=== PATIENT | female | born 1935 | race Caucasian/White ===

== ENCOUNTER 2018-04-14 12:14 | Observation (INO) ==
--- NOTE | 2018-04-14 12:59 | ED ---
HPI General Chief Complaint: Recheck/Abnormal Lab/Rx Stated Complaint: Phys Sent Time Seen by Provider: 04/14/18 12:29 Source: patient and family Mode of arrival: ambulatory Limitations: no limitations History of Present Illness MD Complaint: shortness of breath Onset (ago): week(s) (1) Context: other (h/o CHF) Severity: moderate Consistency/Duration: constant and progressively worsening Relieving factors: nothing Exacerbating factors: exertion Known history of: congestive heart failure Associated symptoms: other (LE edema) Treatment prior to arrival: oxygen and diuretics (HCTZ increased from 1/2 to 1 daily yesterday) Related Data Home oxygen amount: 3 liters Home Medications Medication Instructions Recorded Confirmed Ca-D3-mag sy-xypn-gwp-mg-bor 600 units PO DAILY 04/14/18 04/14/18 [Calcium 600-D3 Plus] albuterol sulfate 2.5 mg INHALATION QID PRN 04/14/18 04/14/18 albuterol sulfate [Ventolin HFA] 1 puff INHALATION Q6H PRN 04/14/18 04/14/18 aspirin-dipyridamole 1 cap PO BID 04/14/18 04/14/18 denosumab [Prolia] 60 mg SUBCUT [id number] 04/14/18 04/14/18 dexamethasone 1 mg PO BID 04/14/18 04/14/18 escitalopram oxalate 5 mg PO DAILY 04/14/18 04/14/18 ferrous sulfate 325 mg PO BID 04/14/18 04/14/18 fluticasone-salmeterol [Advair 1 inh INHALATION BID 04/14/18 04/14/18 Diskus] gabapentin 200 mg PO BID 04/14/18 04/14/18 gabapentin 300 mg PO HS 04/14/18 04/14/18 hydrochlorothiazide 12.5 mg PO DAILY 04/14/18 04/14/18 hydrocodone-acetaminophen 1 tab PO Q6H PRN 04/14/18 04/14/18 levothyroxine 125 mcg PO DAILY 04/14/18 04/14/18 ranitidine HCl 150 mg PO BID 04/14/18 04/14/18 Allergies Allergy/AdvReac Type Severity Reaction Status Date / Time penicillin G Allergy Severe Nausea/Vomi Verified 04/14/18 13:53 ting azithromycin Allergy Mild Itching Verified 04/14/18 13:53 codeine Allergy Mild Itching Verified 04/14/18 13:53 Review of Systems ROS: all other systems reviewed are negative Integumentary/Breasts Reports other (large bruise, L thigh d/t fall 5 days ago--tripped walking dog. ) Hematologic/Lymphatic Reports other (anemic with Hgb of 7 per PCP yesterday) ON LICENSE OF [facility] Medical History Medical History Bronchiectasis (Acute) CHF (congestive heart failure) (Acute) Hypertension (Acute) Thyroid disease (Acute) Brain tumor (Chronic) Pulmonary embolism (Resolved) TIA (transient ischemic attack) (Resolved) Social History Social History Substance History: No History of Abuse Second Hand Smoke Exposure: No Smoking Status: Never smoker How Often Do You Have a Drink Containing Alcohol: Never Recent Travel in [facility] within the Last 8 Weeks: No Recent Out of Country Travel within the Last 8 Weeks: No Exam Const General: cooperative, healthy appearing, comfortable, no acute distress, well developed and well groomed Orientation: alert, awake and oriented x3 HENMT Head: normal to inspection, normocephalic and atraumatic Eyes Alignment and Position: alignment normal Conjunctivae: conjunctivae normal Sclera: sclerae normal EOM: EOM intact bilaterally Neck Neck: normal visual inspection and full ROM Chest Chest: normal inspection of the chest Resp Effort & Inspection: normal respiratory effort, able to speak in complete sentences and other (on oxygen) Auscultation: crackles Cardio Rate: regular rate Rhythm: regular rhythm GI Inspection: normal to inspection Palpation: soft Rectal Exam: visual inspection normal and normal sphincter tone Back/Spine/Pelvis Cervical Spine: cervical ROM normal Thoracic/Lumbar Spine: thoraco-lumbar ROM normal Skin General: no rashes or lesions noted, turgor normal and ecchymosis (entire left lateral thigh) Neuro General: alert, awake, oriented x3, moves all extremities and CN's II-XI intact bilaterally Extrem General: normal to inspection and full ROM Left lower extremity: edema Details: pitting and 1+ Psych Appearance: grossly normal Mental Status: mental status grossly normal Speech and Movement: speech and movement normal Mood: congruent mood Affect: normal affect Attitude: cooperative Thought Process: normal Thought Content: normal Judgment: judgment good Procedures Hemaprompt Stool Procedural Steps Taken: specimen placed in appropriate test area and controls appropriately positive and negative Hemaprompt Stool Result: positive (trace) Course Consultations Consultation #1: Dr. Dotson asks that she be placed in OBS Time: 14:57 Initial Documented Vital Signs Temperature 98.8 F 04/14/18 12:18 Pulse Rate 79 04/14/18 12:18 Respiratory Rate 18 04/14/18 12:18 Blood Pressure 125/58 L 04/14/18 12:18 Pulse Oximetry 95 04/14/18 12:18 Last Documented Vital Signs Temperature 98.8 F 04/14/18 12:18 Pulse Rate 68 04/14/18 12:55 Respiratory Rate 20 04/14/18 12:55 Blood Pressure 123/77 04/14/18 12:55 Pulse Oximetry 98 04/14/18 12:55 Medical Decision Making MDM Narrative Medical decision making narrative: He called the patient's daughter today and instructed her to bring the patient to the hospitalThis patient is brought in by her daughter with a one-week history of worsening dyspnea as well as peripheral edema. She saw her PMD yesterday who increased her HCTZ from 12.5 mg daily to 25 mg daily. He obtained lab work and a chest x-ray in the office yesterday. Because of congestive heart failure as well as anemia. The daughter states that her hemoglobin as an outpatient was 7. The most probable etiology of her anemia is a little large left thigh hematoma which she sustained approximately 5 days ago following a trip and fall while walking her dog. Medical Screen Exam Complete: Yes Emergency Medical Condition: Yes Differential Diagnosis Differential Diagnosis: Differential diagnosis of dyspnea includes but is not limited to congestive heart failure, pneumonia, wheezing, pneumothorax, pulmonary embolism Lab Data Lab results reviewed: Yes I reviewed the patient's lab results. Lab results narrative: I had already ordered a type and cross based upon her history. I have now ordered transfusion times 2 units. Result diagrams: 04/14/18 13:41 04/14/18 13:41 Lab Results 04/14/18 04/14/18 04/14/18 Range/Units 13:41 13:41 13:41 WBC 8.3 (4.0-11.0) th/mm3 RBC 2.47 L (4.00-5.30) mil/mm3 Hgb 6.8 L* (11.6-15.3) gm/dL Hct 21.8 L (35.0-46.0) % MCV 88.3 (80.0-100.0) fL MCH 27.6 (27.0-34.0) pg MCHC 31.2 L (32.0-36.0) % RDW 18.6 H (11.6-17.2) % Plt Count 131 L (150-450) th/mm3 MPV 10.1 (7.0-11.0) fL Prelim Diff (Auto) Manual diff required WBC Differential Manual diff final Seg Neuts % (Manual) 63 (16-70) % Band Neuts % (Manual) 2 (0-6) % Lymphocytes % (Manual) 17 (9-44) % Monocytes % (Manual) 18 H (0-8) % Abs Neuts (Manual) 5.4 (1.8-7.7) th/mm3 Differential Comment . Platelet Estimate Low L (Normal) Platelet Morphology Normal (Normal) Ovalocytes 1+ H (None) Sodium 145 (136-145) meq/L Potassium 3.7 (3.5-5.1) meq/L Chloride 108 H (98-107) meq/L Carbon Dioxide 29.5 (21.0-32.0) meq/L Anion Gap 8 (5-15) meq/L BUN 33 H (7-18) mg/dL Creatinine 1.02 H (0.50-1.00) mg/dL Estimated GFR 52 L (>89) mL/min Random Glucose 79 (74-106) mg/dL Calcium 8.1 L (8.5-10.1) mg/dL Total Bilirubin 0.3 (0.2-1.0) mg/dL AST 20 (15-37) U/L ALT 20 (10-53) U/L Alkaline Phosphatase 56 (45-117) U/L Troponin I Less than 0.02 L (0.02-0.05) ng/mL B-Natriuretic Peptide 120 H (0-100) pg/mL Total Protein 5.4 L (6.4-8.2) g/dL Albumin 2.8 L (3.4-5.0) g/dL Blood Type Blood Type Recheck Antibody Screen MTS Gel Crossmatch 04/14/18 Range/Units 13:41 WBC (4.0-11.0) th/mm3 RBC (4.00-5.30) mil/mm3 Hgb (11.6-15.3) gm/dL Hct (35.0-46.0) % MCV (80.0-100.0) fL MCH (27.0-34.0) pg MCHC (32.0-36.0) % RDW (11.6-17.2) % Plt Count (150-450) th/mm3 MPV (7.0-11.0) fL Prelim Diff (Auto) WBC Differential Seg Neuts % (Manual) (16-70) % Band Neuts % (Manual) (0-6) % Lymphocytes % (Manual) (9-44) % Monocytes % (Manual) (0-8) % Abs Neuts (Manual) (1.8-7.7) th/mm3 Differential Comment Platelet Estimate (Normal) Platelet Morphology (Normal) Ovalocytes (None) Sodium (136-145) meq/L Potassium (3.5-5.1) meq/L Chloride (98-107) meq/L Carbon Dioxide (21.0-32.0) meq/L Anion Gap (5-15) meq/L BUN (7-18) mg/dL Creatinine (0.50-1.00) mg/dL Estimated GFR (>89) mL/min Random Glucose (74-106) mg/dL Calcium (8.5-10.1) mg/dL Total Bilirubin (0.2-1.0) mg/dL AST (15-37) U/L ALT (10-53) U/L Alkaline Phosphatase (45-117) U/L Troponin I (0.02-0.05) ng/mL B-Natriuretic Peptide (0-100) pg/mL Total Protein (6.4-8.2) g/dL Albumin (3.4-5.0) g/dL Blood Type O Positive Blood Type Recheck Required Antibody Screen Negative MTS Gel Crossmatch See Detail Imaging Data Attestation: I personally reviewed and interpreted this imaging study as follows : Radiologist's impression: Chest X-Ray 04/14/18 12:29 CONCLUSION: 1. Senescent changes with minimal bibasilar atelectasis/scarring. ECG Data EKG Prior to Arrival: No Attestation: I personally reviewed and interpreted this ECG as follows: (EKG shows a sinus rhythm with a rate of 61. No acute STT wave changes.) Discharge Plan Discharge Disposition Patient Disposition: 30 Still Patient Discharge Details Diagnosis: Anemia Physicians Team ED Provider: Vale Mane Primary Care Provider: Kaushik Tracey Rxs /Orders / Referrals /Forms Prescriptions: No Action fluticasone-salmeterol [Advair Diskus] 250-50 mcg/dose Blister With Device 1 inh INHALATION BID RF: 0 aspirin-dipyridamole 25-200 mg Capsule, Er Multiphase 12 Hr 1 cap PO BID RF: 0 albuterol sulfate 2.5 mg /3 mL (0.083 %) Solution For Nebulization 2.5 mg INHALATION QID PRN (Reason: Shortness Of Breath) RF: 0 dexamethasone 1 mg Tablet 1 mg PO BID RF: 0 hydrocodone-acetaminophen 7.5-325 mg Tablet 1 tab PO Q6H PRN (Reason: Pain) RF: 0 ferrous sulfate 325 mg (65 mg iron) Tablet 325 mg PO BID RF: 0 levothyroxine 125 mcg Tablet 125 mcg PO DAILY RF: 0 ranitidine HCl 150 mg Tablet 150 mg PO BID RF: 0 gabapentin 300 mg Capsule 300 mg PO HS RF: 0 gabapentin 100 mg Capsule 200 mg PO BID RF: 0 albuterol sulfate [Ventolin HFA] 90 mcg/actuation Hfa Aerosol Inhaler 1 puff INHALATION Q6H PRN (Reason: Shortness Of Breath) RF: 0 escitalopram oxalate 5 mg Tablet 5 mg PO DAILY RF: 0 hydrochlorothiazide 12.5 mg Tablet 12.5 mg PO DAILY RF: 0 denosumab [Prolia] 60 mg/mL Syringe 60 mg SUBCUT [id number] RF: 0 Ca-D3-mag xg-pufj-kqb-mg-bor [Calcium 600-D3 Plus] 600 mg calcium- 800 unit- 50 mg Tablet 600 units PO DAILY RF: 0 Discharge Interventions Interventions: Vital Signs Last Done: 04/14/18 12:55 Status ED Status: With Doctor
--- NOTE | 2018-04-14 13:36 | XR ---
EXAM DATE: 04/14/2018 12:29 PM EDT AGE/SEX: 83 years / Female INDICATIONS: Weakness, shortness of breath, chest pressure. CLINICAL DATA: This is the patient's initial encounter. Patient reports that signs and symptoms have been present for 2 days and indicates a pain score of 2/10. MEDICAL/SURGICAL HISTORY: Cardiovascular disease. None. COMPARISON: [facility], CT CHEST W AND W/O CONTRAST, 04/17/2017. . FINDINGS: Diffuse interstitial prominence with mild bibasilar airspace disease.. The cardiomediastinal contour s are unremarkable. Partially imaged right humeral intramedullary alethea. CONCLUSION: 1. Senescent changes with minimal bibasilar atelectasis/scarring. Electronically signed by: Srikanth Louise MD 04/14/2018 1:35 PM EDT
[2018-04-14 14:11] LABS: Mean Corpuscular HGB Conc 31.2 % (32.0-36.0); Mean Corpuscular Hemoglobin 27.6 pg (27.0-34.0); Mean Corpuscular Volume 88.3 fL (80.0-100.0); Mean Platelet Volume 10.1 fL (7.0-11.0); Platelet Count 131 th/mm3 (150-450); Red Blood Count 2.47 mil/mm3 (4.00-5.30); Red Cell Distribution Width 18.6 % (11.6-17.2); White Blood Count 8.3 th/mm3 (4.0-11.0)
[2018-04-14 14:15] LABS: Hemoglobin 6.8 gm/dL (11.6-15.3)
[2018-04-14 14:16] LABS: Hematocrit 21.8 % (35.0-46.0)
[2018-04-14 14:28] LABS: Alanine Aminotransferase 20 U/L (10-53); Albumin 2.8 g/dL (3.4-5.0); Anion Gap 8 meq/L (5-15); Aspartate Aminotransferase 20 U/L (15-37); Blood Urea Nitrogen 33 mg/dL (7-18); Calcium 8.1 mg/dL (8.5-10.1); Carbon Dioxide 29.5 meq/L (21.0-32.0); Chloride 108 meq/L (98-107); Glomerular Filtration Rate 52 mL/min (>89); Glucose,Random 79 mg/dL (74-106); Potassium 3.7 meq/L (3.5-5.1); Sodium 145 meq/L (136-145)
[2018-04-14 14:32] LABS: Alkaline Phosphatase 56 U/L (45-117); Total Protein 5.4 g/dL (6.4-8.2)
[2018-04-14 14:42] LABS: Lymphocytes 17 % (9-44); Monocytes 18 % (0-8)
[2018-04-14 14:43] LABS: Ovalocytes 1+; Platelet Morphology Normal (Normal)
[2018-04-14] MEDS ORDERED: Bisacodyl 10 MG Supp RECTAL PRN (14:59)
[2018-04-14] MEDS ORDERED: Acetaminophen 325 MG Tablet PO ONE (15:04)
[2018-04-14] MEDS ORDERED: Sodium Chlor 0.9% Inj 250 ML IV.SIG SCH (16:00)
--- NOTE | 2018-04-14 17:06 | P.HPIM ---
[facility] of Present Illness [facility] Primary [facility] Physician: Kaushik Tracey MD Chief Complaint: Anemia History of Present Illness: 83-year-old female brought who was instructed to report to the hospital from her doctor's office for low hemoglobin. The patient sustained a fall about a week ago after he tripped and fell while walking her dog. She sustained a large left thigh hematoma. She presented to her doctor's office yesterday for evaluation due to increasing shortness of breath and peripheral edema. A chest x-ray was obtained which was reported as unremarkable per ED physician. However a CBC reported hgb of 7 which prompted the hospital visit. Labs in the emergency room revealed a hemoglobin of 6.8. Patient currently reports she is feeling tired. No chest pain. No shortness of breath at rest. Discussed with her daughter and dental instructor at bedside. She has a known chronic and small GI bleeding. She follows regularly with GI and has had multiple endoscopy without obvious source of bleeding. Her hemoglobin has been slowly trending down. Review of Systems All other systems reviewed negative except as stated in HPI Constitutional: Reports fatigue Cardiovascular: Denies chest pain, Denies chest pain at rest, Denies chest pain with activity Respiratory: Denies shortness of breath, Denies wheezing PMFSH - History History Provided By: Patient, Family Member - Medical History Medical History: Medical History (Last Reviewed 04/14/18 @ 16:59 by Levi Dotson MD) Bronchiectasis Cholecystectomy planned History of hysterectomy Hypertension Thyroid disease CHF (congestive heart failure) Brain tumor Pulmonary embolism TIA (transient ischemic attack) - Surgical History Surgical History: Surgical History (Last Reviewed 04/14/18 @ 16:59 by Levi Dotson MD) Hip joint replacement by other means History of repair of rotator cuff - Family History Family History: Family History (Last Updated 04/14/18 @ 17:00 by Levi Dotson MD) Other Family history reviewed with no changes - Social History I have reviewed the patient's Social History: Yes - Tobacco History Second Hand Smoke Exposure: No Smoking Status: Never smoker - Alcohol History How Often Do You Have a Drink Containing Alcohol: Never - Substance Use History Substance History: No History of Abuse - Travel History Recent Travel in the [place] Within the Last 8 Weeks: No Recent Travel Out of the Country Within the Last 8 Weeks: No - Immunization History Tetanus Immunization: Unsure Hx Influenza Vaccine This Season: No Medications and Allergies Active Medications: Active Medications Hydrocodone Bitart/Acetaminophen ([place] 7.5/325) 1 tab PO Q6H PRN PRN Reason: Pain Al Hydroxide/Mg Hydroxide (Milk Of Magnesia Liq) 30 ml PO Q12H PRN PRN Reason: Mild Constipation Albuterol (Ventolin Hfa Inh) 1 puff INH Q6H PRN PRN Reason: SHORTNESS OF BREATH Albuterol (Albuterol Neb (Prn)) 2.5 mg NEB QID NEB PRN PRN Reason: SHORTNESS OF BREATH Bisacodyl (Dulcolax Supp) 10 mg RECTAL DAILY PRN PRN Reason: SEVERE CONSITIPATION Budesonide/Formoterol Fumarate (Symbicort 160/4.5 Mcg Inh) 2 puff INH BID [place] Escitalopram Oxalate (Lexapro) 5 mg PO DAILY [facility] Famotidine (Pepcid) 20 mg PO BID [place] Ferrous Sulfate (Ferosul) 325 mg PO BID [facility] Gabapentin (Neurontin) 200 mg PO BID [facility] Gabapentin (Neurontin) 300 mg PO HS [facility] Hydrochlorothiazide (Hydrodiuril) 12.5 mg PO DAILY [place] Sodium Chloride (Ns Inj) 250 mls @ 15 mls/hr IV.SIG ONCE [place] Stop: 04/15/18 08:39 Last Admin: 04/14/18 16:07 Dose: 15 mls/hr Lactulose (Lactulose Liq) 30 ml PO DAILY PRN PRN Reason: SEVERE CONSITIPATION Levothyroxine Sodium (Synthroid) 125 mcg PO DAILY@0600 [facility] Non-Formulary Medication (Dexamethasone [Dexamethasone]) 1 mg PO BID [place] Sennosides (Senokot) 17.2 mg PO Q12H PRN PRN Reason: Moderate Constipation Allergies Allergy/AdvReac Type Severity Reaction Status Date / Time penicillin G Allergy Severe Nausea/Vomi Verified 04/14/18 13:53 ting azithromycin Allergy Mild Itching Verified 04/14/18 13:53 codeine Allergy Mild Itching Verified 04/14/18 13:53 Home Medications Medication Instructions Recorded Confirmed Type Ca-D3-mag kr-xuvw-dzv-mg-bor 600 units PO DAILY 04/14/18 04/14/18 History [Calcium 600-D3 Plus] albuterol sulfate 2.5 mg INHALATION QID PRN 04/14/18 04/14/18 History albuterol sulfate [Ventolin HFA] 1 puff INHALATION Q6H PRN 04/14/18 04/14/18 History aspirin-dipyridamole 1 cap PO BID 04/14/18 04/14/18 History denosumab [Prolia] 60 mg SUBCUT [id number] 04/14/18 04/14/18 History dexamethasone 1 mg PO BID 04/14/18 04/14/18 History escitalopram oxalate 5 mg PO DAILY 04/14/18 04/14/18 History ferrous sulfate 325 mg PO BID 04/14/18 04/14/18 History fluticasone-salmeterol [Advair 1 inh INHALATION BID 04/14/18 04/14/18 History Diskus] gabapentin 200 mg PO BID 04/14/18 04/14/18 History gabapentin 300 mg PO HS 04/14/18 04/14/18 History hydrochlorothiazide 12.5 mg PO DAILY 04/14/18 04/14/18 History hydrocodone-acetaminophen 1 tab PO Q6H PRN 04/14/18 04/14/18 History levothyroxine 125 mcg PO DAILY 04/14/18 04/14/18 History ranitidine HCl 150 mg PO BID 04/14/18 04/14/18 History Exam Vital signs: Vital Signs 04/14/18 12:18 04/14/18 12:55 04/14/18 15:46 Temperature 98.8 F Pulse Rate 79 68 74 Respiratory Rate 18 20 18 Blood Pressure 125/58 L 123/77 116/55 L Pulse Oximetry 95 98 100 Intake & Output 04/13/18 04/14/18 04/14/18 18:59 06:59 18:59 Weight 61.689 kg Other: Weight On Admission 61.689 kg Narrative: GENERAL: Elderly female in no acute distress. SKIN: Large echymoses involving the left thigh. Minimal tenderness to palpation. HEAD: Normocephalic. EYES: No scleral icterus. No injection or drainage. NECK: Supple, trachea midline. No JVD or lymphadenopathy. CARDIOVASCULAR: Regular rate and rhythm without murmurs, gallops, or rubs. RESPIRATORY: Breath sounds equal bilaterally. No accessory muscle use. CTA except for faint basilar crackles. GASTROINTESTINAL: Abdomen soft, non-tender, nondistended. MUSCULOSKELETAL: No cyanosis, or edema. No pain with hip ROM paul. BACK: Nontender without obvious deformity. No CVA tenderness. Results - Labs CBC & Chem 7: 04/14/18 13:41 04/14/18 13:41 Labs: Short CBC 04/14/18 Range/Units 13:41 WBC 8.3 (4.0-11.0) th/mm3 Hgb 6.8 L* (11.6-15.3) gm/dL Hct 21.8 L (35.0-46.0) % Plt Count 131 L (150-450) th/mm3 BMP 04/14/18 13:41 Sodium 145 Potassium 3.7 Chloride 108 H Carbon Dioxide 29.5 BUN 33 H Creatinine 1.02 H Calcium 8.1 L Cardiac Enzymes 04/14/18 Range/Units 13:41 Troponin I Less than 0.02 L (0.02-0.05) ng/mL Liver Function 04/14/18 Range/Units 13:41 Total Bilirubin 0.3 (0.2-1.0) mg/dL AST 20 (15-37) U/L ALT 20 (10-53) U/L Alkaline Phosphatase 56 (45-117) U/L Albumin 2.8 L (3.4-5.0) g/dL - Imaging Impressions Chest X-Ray 04/14/18 12:29 CONCLUSION: 1. Senescent changes with minimal bibasilar atelectasis/scarring. Caprini VTE Risk Assessment Caprini VTE Risk Assessment: Moderate/High Risk (score >= 2) VTE Pharmacological Exception Reason: High risk for bleeding Caprini Risk Assessment Model: Point Value = 1 Point Value = 2 Point Value = 3 Point Value = 5 Age 41-60 Minor surgery BMI > 25 kg/m2 Swollen legs Varicose veins or History of unexplained or recurrent spontaneous Oral contraceptives or hormone replacement Sepsis (< 1 month) Serious lung disease, including pneumonia (< 1 month) Abnormal pulmonary function Acute myocardial infarction Congestive heart failure (< 1 month) History of inflammatory bowel disease Medical patient at bed rest Age 61-74 Arthroscopic surgery Major open surgery (> 45 min) Laparoscopic surgery (> 45 min) Malignancy Confined to bed (> 72 hours) Immobilizing plaster cast Central venous access Age >= 75 History of VTE Family history of VTE Factor V Leiden Prothrombin [id number] Lupus anticoagulant Anticardiolipin antibodies Elevated serum homocysteine Heparin-induced thrombocytopenia Other congenital or acquired thrombophilia Stroke (< 1 month) Elective arthroplasty Hip, pelvis, or leg fracture Acute spinal cord injury (< 1 month) Prophylaxis Regimen: Total Risk Factor Score Risk Level Prophylaxis Regimen 0-1 Low Early ambulation 2 Moderate Order ONE of the following: *Sequential Compression Device (SCD) *Heparin 5000 units SQ BID 3-4 Higher Order ONE of the following medications: *Heparin 5000 units SQ TID *Enoxaparin/Lovenox 40 mg SQ daily (WT < 150 kg, CrCl > 30 mL/min) *Enoxaparin/Lovenox 30 mg SQ daily (WT < 150 kg, CrCl > 10-29 mL/min) *Enoxaparin/Lovenox 30 mg SQ BID (WT < 150 kg, CrCl > 30 mL/min) AND/OR *Sequential Compression Device (SCD) 5 or more Highest Order ONE of the following medications: *Heparin 5000 units SQ TID (Preferred with Epidurals) *Enoxaparin/Lovenox 40 mg SQ daily (WT < 150 kg, CrCl > 30 mL/min) *Enoxaparin/Lovenox 30 mg SQ daily (WT < 150 kg, CrCl > 10-29 mL/min) *Enoxaparin/Lovenox 30 mg SQ BID (WT < 150 kg, CrCl > 30 mL/min) AND *Sequential Compression Device (SCD) Assessment and Plan - Plan 83-year-old female admitted for acute anemia secondary to blood loss. Patient had a fall and sustained a significant hematoma. She has a history of chronic slow GI bleed followed by GI. - Will transfuse 2 units of PRBC. Give Lasix in between. Follow-up H&H in a.m. BNP does not indicate acute CHF. Chest x-ray reassuring. - PT to evaluate. -Continue the patient's home medications for her chronic conditions. If no further complications and H&H remains stable after the transfusion, anticipate she may be able to discharge back home tomorrow. Discussed Condition With: Dr. Mane H&P: Quality - VTE Deep Vein Thrombosis/Pulmonary Embolism Present on Admission: No
[2018-04-14] MEDS: Famotidine 20 MG Tablet PO SCH (20:50)
[2018-04-14] MEDS: Gabapentin 100 MG Capsule PO SCH (20:51)
[2018-04-14] MEDS: Ferrous Sulfate 325 MG Tablet PO SCH (20:52)
[2018-04-14] MEDS ORDERED: Gabapentin 300 MG Capsule PO SCH (21:00)
[2018-04-14] MEDS: Budesonide-Formoterol 160/4.5 MCG 6 GM Inhaler INH SCH (21:33)
[2018-04-15] MEDS ORDERED: Levothyroxine 125 MCG Tablet PO SCH (06:00)
[2018-04-15 07:14] LABS: Baso % (Auto) 0.3 % (0.0-2.0); Eos % (Auto) 0.4 % (0.0-4.0); Hematocrit 31.5 % (35.0-46.0); Hemoglobin 10.3 gm/dL (11.6-15.3); Lymph # (Auto) 1.2 th/mm3 (1.0-4.8); Lymph % (Auto) 13.5 % (9.0-44.0); Mean Corpuscular HGB Conc 32.7 % (32.0-36.0); Mean Corpuscular Hemoglobin 29.4 pg (27.0-34.0); Mean Corpuscular Volume 89.7 fL (80.0-100.0); Mean Platelet Volume 9.7 fL (7.0-11.0); Mono # (Auto) 0.9 th/mm3 (0.0-0.9); Mono % (Auto) 10.3 % (0.0-8.0); Neut # (Auto) 6.9 th/mm3 (1.8-7.7); Neut % (Auto) 75.5 % (16.0-70.0); Platelet Count 173 th/mm3 (150-450); Red Blood Count 3.51 mil/mm3 (4.00-5.30); White Blood Count 9.1 th/mm3 (4.0-11.0)
[2018-04-15 07:40] LABS: Calcium 7.8 mg/dL (8.5-10.1); Carbon Dioxide 29.8 meq/L (21.0-32.0); Potassium 4.1 meq/L (3.5-5.1)
[2018-04-15] MEDS ORDERED: hydroCHLOROthiazide 25 MG Tablet PO SCH (09:00)
[2018-04-15] MEDS ORDERED: Escitalopram 10 MG Tablet PO SCH (09:00)
[2018-04-15] MEDS ORDERED: CA D3 MAG OX ZINC COP MANG BOR PO SCH (09:00)
[2018-04-15] MEDS: Gabapentin 100 MG Capsule PO SCH (09:54)
[2018-04-15] MEDS: Famotidine 20 MG Tablet PO SCH (09:55)
[2018-04-15] MEDS: Budesonide-Formoterol 160/4.5 MCG 6 GM Inhaler INH SCH ×2 (09:58→10:00)
[2018-04-15] MEDS: Ferrous Sulfate 325 MG Tablet PO SCH (09:58)
[2018-04-15 11:55] LABS: Bacteria,Urine Many /hpf; Bilirubin,Urine Negative (Negative); Color,Urine Yellow (Yellw/Straw); Glucose,Urine (UA) Negative (Negative); Hyaline Casts,Urine 3 /lpf (0-3); Leukocyte Esterase,Urine Trace (Negative); Nitrite,Urine Negative (Negative); Specific Gravity,Urine 1.015 (1.002-1.035); Squamous Epithelial Cell,Urine 1 /hpf (0-5)
[2018-04-15 11:56] LABS: Clarity,Urine Hazy (Clear)
--- NOTE | 2018-04-15 14:29 | P.DCO ---
- Physical Therapy Order: Evaluate and treat, Improve ambulation, Strength and gait training - Home Health Nursing Order: Medical education, Signs/symptoms of disease process, Medication education-adverse effect, Nursing assessment with vital signs - Case Management Consult Yes - Certification I have seen patient Holli Lopez on 04/15/18. My clinical findings support the need for the requested home health care services because: Deconditioned with increased weakness, Limited ability to care for self, High risk of falls I certify that my clinical findings support that this patient is homebound because: Unsteady gait/balance, Unsafe to leave home unassisted, Unable to use public transportation
--- NOTE | 2018-04-15 14:33 | P.PN ---
Subjective Interval history: Follow-up on patient with anemia status post transfusion. Patient seen and examined. Patient denies any complaints. States she feels well. Denies any dizziness, lightheadedness or vision changes. Denies any fever or chills. Denies any chest pain or shortness of breath. Denies any urinary tract infection symptoms. Physical Exam Vital signs: Vital Signs 04/14/18 15:46 04/14/18 16:55 04/14/18 17:23 Temperature 98.5 F 98.1 F Pulse Rate 74 101 H 69 Respiratory Rate 18 20 18 Blood Pressure 116/55 L 105/58 L 104/55 L Pulse Oximetry 100 95 91 L 04/14/18 17:29 04/14/18 17:44 04/14/18 20:00 Temperature 98.7 F 97.8 F Pulse Rate 75 70 Respiratory Rate 18 16 Blood Pressure 118/56 L 108/52 L Pulse Oximetry 96 96 98 04/14/18 20:46 04/14/18 20:59 04/15/18 00:00 Temperature 97.8 F 97.8 F 97.8 F Pulse Rate 70 70 68 Respiratory Rate 16 16 17 Blood Pressure 108/52 L 114/57 L 109/57 L Pulse Oximetry 98 98 97 04/15/18 04:00 04/15/18 07:28 04/15/18 08:01 Temperature 97.9 F 98.3 F Pulse Rate 69 67 61 Respiratory Rate 16 18 Blood Pressure 125/60 130/61 Pulse Oximetry 97 99 04/15/18 09:46 04/15/18 12:45 Temperature 98.0 F Pulse Rate 66 Respiratory Rate 18 Blood Pressure 110/57 L Pulse Oximetry 99 97 Intake & Output 04/14/18 04/15/18 04/15/18 18:59 06:59 18:59 Intake Total 0 / 0 800 / 800 250 / 250 Output Total 350 / 350 Balance 0 / 0 450 / 450 250 / 250 Weight 61.689 kg 61.1 kg Intake: IV 250 / 250 NS Inj 250 ML @ 15 mls/hr IV. 250 / 250 SIG ONCE [facility] Rx#:[id number] Intake (Blood Product) Amt 0 / 0 800 / 800 Rbc As-3 Leukoreduced Unit 400 / 400 [id number] Rbc As-3 Leukoreduced Unit 0 / 0 400 / 400 [id number] Output: Urine 350 / 350 Other: Weight On Admission 61.689 kg Narrative: GENERAL: WDWN Elderly female patient, in no acute distress. Awake and alert. Witnessed ambulating in the hallway with physical therapy. SKIN: Large echymoses involving the left thigh. Minimal tenderness to palpation. HEAD: Normocephalic. EYES: No scleral icterus. No injection or drainage. NECK: Supple, trachea midline. No JVD or lymphadenopathy. CARDIOVASCULAR: Regular rate and rhythm without murmurs, gallops, or rubs. RESPIRATORY: Breath sounds equal bilaterally. No accessory muscle use. CTA except for faint basilar crackles. GASTROINTESTINAL: Abdomen soft, non-tender, nondistended. MUSCULOSKELETAL: No cyanosis, or edema. BACK: Nontender without obvious deformity. No CVA tenderness. PSYCHIATRIC: Appropriate mood and affect. Normal judgment and insight. Results - Labs CBC & Chem 7: 04/15/18 06:50 04/15/18 06:50 Laboratory Results - last 24 hr 04/14/18 04/14/18 04/14/18 13:41 13:41 13:41 WBC RBC Hgb Hct MCV MCH MCHC RDW Plt Count MPV Neut % (Auto) Lymph % (Auto) [place] % (Auto) Eos % (Auto) Baso % (Auto) Neut # (Auto) Lymph # (Auto) [place] # (Auto) Eos # (Auto) Baso # (Auto) WBC Differential Manual diff final Seg Neuts % (Manual) 63 Band Neuts % (Manual) 2 Lymphocytes % (Manual) 17 Monocytes % (Manual) 18 H Abs Neuts (Manual) 5.4 Differential Comment Platelet Estimate Low L Platelet Morphology Normal Ovalocytes 1+ H Sodium Potassium Chloride Carbon Dioxide Anion Gap BUN Creatinine Estimated GFR Random Glucose Calcium B-Natriuretic Peptide 120 H Urine Color Urine Clarity Urine pH Ur Specific [place] Urine Protein Urine Glucose (UA) Urine Ketones Urine Occult Blood Urine Nitrate Urine Bilirubin Urine Urobilinogen Ur Leukocyte Esterase Urine RBC Urine WBC Ur Squamous Epith Cells Urine Bacteria Hyaline Casts Micro UA Comment Ur Microscopic Review Urine Culture Comments Blood Type O Positive Blood Type Recheck Required Antibody Screen Negative MTS Gel Crossmatch See Detail Bld Prod Order Comment 04/15/18 04/15/18 04/15/18 06:50 06:50 09:08 WBC 9.1 RBC 3.51 L Hgb 10.3 L D Hct 31.5 L MCV 89.7 MCH 29.4 MCHC 32.7 RDW 17.0 Plt Count 173 D MPV 9.7 Neut % (Auto) 75.5 H Lymph % (Auto) 13.5 [place] % (Auto) 10.3 H Eos % (Auto) 0.4 Baso % (Auto) 0.3 Neut # (Auto) 6.9 Lymph # (Auto) 1.2 [place] # (Auto) 0.9 Eos # (Auto) 0.0 Baso # (Auto) 0.0 WBC Differential . Seg Neuts % (Manual) Band Neuts % (Manual) Lymphocytes % (Manual) Monocytes % (Manual) Abs Neuts (Manual) Differential Comment Auto diff final Platelet Estimate Platelet Morphology Ovalocytes Sodium 142 Potassium 4.1 Chloride 106 Carbon Dioxide 29.8 Anion Gap 6 BUN 31 H Creatinine 1.09 H Estimated GFR 48 L Random Glucose 99 Calcium 7.8 L B-Natriuretic Peptide Urine Color Yellow Urine Clarity Hazy H Urine pH 7.0 Ur Specific [place] 1.015 Urine Protein Negative Urine Glucose (UA) Negative Urine Ketones Negative Urine Occult Blood Negative Urine Nitrate Negative Urine Bilirubin Negative Urine Urobilinogen Less than 2 Ur Leukocyte Esterase Trace H Urine RBC Less than 1 Urine WBC 12 H Ur Squamous Epith Cells 1 Urine Bacteria Many H Hyaline Casts 3 Micro UA Comment Culture indicated Ur Microscopic Review Not Reportable Urine Culture Comments Culture indicated Blood Type Blood Type Recheck Antibody Screen MTS Gel Crossmatch Bld Prod Order Comment Assessment and Plan - Assessment (1) Weakness Code(s): R53.1 - Weakness Status: Acute (2) Gait instability Code(s): R26.81 - Unsteadiness on feet Status: Acute (3) Risk for falls Code(s): Z91.81 - History of falling Status: Acute - Plan 83-year-old female admitted for acute anemia secondary to blood loss. Patient had a fall and sustained a significant hematoma. She has a history of chronic slow GI bleed followed by GI. Anemia Status post recent fall with significant hematoma History of slow GI bleed, followed by GI as outpatient -Hemoglobin 6.8, improved to 10.3 status post transfusion 2 units PRBCs. -Evaluated by PT, HHC PT at discharge KIM Patient denies any history of chronic kidney disease Creatinine 1.02, trending up slightly 1.09 this morning Suspect secondary to hypoperfusion from anemia, suspected UTI and IV Lasix -Discussed with patient, she has close follow-up with PCP. Will have BMP repeated in the next 2 days as outpatient Suspect UTI -UA hazy, trace leukocytes, 12 white blood cells, many bacteria, culture indicated -We will give 1 dose of IV Rocephin with plans to change to oral Ceftin at discharge -Follow-up on final urine culture results -Continue the patient's home medications for her chronic conditions. Discharge patient to home Condition on discharge: stable Heart healthy Diet as tolerated Ad [place] activity Rx written: Ceftin Follow-up with primary care physician and gastroenterology Code Status: FULL Discussed Condition With: patient, nursing staff, Dr. Pizarro
[2018-04-15 15:50] VITALS: BP 123/58; PULSE 72; RESP 16; TEMP 98.4; O2SAT 98
== END 2018-04-15 17:09 | disposition home health service (06) ==
LOC: NEPE 12:14 → NEDA 12:14 → NEPHCDU 16:33
PROVIDERS: ADMIT Family Medicine; ATTEND Family Medicine
DX: N17.9 Acute kidney failure, unspecified; Z96.649 Presence of unspecified artificial hip joint; Z88.1 Allergy status to other antibiotic agents; D62 Acute posthemorrhagic anemia; Z86.73 Personal history of transient ischemic attack (TIA), and cerebral infarction without residual deficits; Z91.81 History of falling; J47.9 Bronchiectasis, uncomplicated; Z88.0 Allergy status to penicillin; E07.9 Disorder of thyroid, unspecified; Z86.711 Personal history of pulmonary embolism; W01.0XXA Fall on same level from slipping, tripping and stumbling without subsequent striking against object, initial encounter; K92.2 Gastrointestinal hemorrhage, unspecified; Z88.5 Allergy status to narcotic agent; I11.0 Hypertensive heart disease with heart failure; N39.0 Urinary tract infection, site not specified; B96.1 Klebsiella pneumoniae [K. pneumoniae] as the cause of diseases classified elsewhere; I50.9 Heart failure, unspecified; Z90.710 Acquired absence of both cervix and uterus; D49.6 Neoplasm of unspecified behavior of brain; R53.1 Weakness; S70.12XA Contusion of left thigh, initial encounter; R26.81 Unsteadiness on feet